=== PATIENT | female | born 1990 | race Caucasian/White ===

== ENCOUNTER 2025-03-17 11:11 | Emergency (ER) | payer SELFPAY ==
[2025-03-17] MEDS ORDERED: Ketorolac Tromethamine 30 MG (1 mL) VIAL ONE (11:34)
== END 2025-03-17 13:20 | disposition home or self-care (01) ==
LOC: ERS 11:11
DX: M54.6 Pain in thoracic spine (principal); M79.18 Myalgia, other site; F17.210 Nicotine dependence, cigarettes, uncomplicated
CPT/HCPCS: 71111; 72072; 96372; 99283; J1885